=== PATIENT | female | born 1985 | race African-American/Black ===

== ENCOUNTER 2016-07-05 15:40 | Emergency (ER) | payer MEDICAID ==
[~2016-07-05] VITALS: Ht 170.2 cm; Wt 74.8 kg
[~2016-07-05 15:40] MED LIST: ACETAMINOPHEN-1 EAC1 PO; AUGMENTIN 875-1 EAC1 ORAL; AZITHROMYCIN250 MG ORAL; CYCLOBENZAPRINE10 MG ORAL; IBUPROFEN600 MG ORAL; METROGEL-VAGINA70 G1 VAGIN; NAPROSYN500 M1 ORAL; NKM; VIBRAMYCIN100 MG ORAL; ZOFRAN4 M3 ORAL
[2016-07-05] MEDS ORDERED: Morphine Sulfate 4mg/ml Inj IVP ONE (16:15)
[2016-07-05 16:38] LABS: APPEARANCE,URINE CLEAR; KETONES,URINE NEGATIVE (NEGATIVE); LEUKOCYTE ESTERASE ,URINE 1+ (NEGATIVE); NITRITE,URINE NEGATIVE (NEGATIVE); PH,URINE 5 (4.5-8.0); PROTEIN,URINE NEGATIVE (NEGATIVE); UROBILINOGEN,URINE NORMAL MG/DL (0.0-1.0)
[2016-07-05 16:41] LABS: BASOPHILS % (AUTO) 1.8 % (0.0-2.0); EOSINOPHILS % (AUTO) 1.3 % (0.0-3.0); LYMPHOCYTES % (AUTO) 44.7 % (20.0-45.0); MEAN CORPUSCULAR HEMOGLOBIN 27.4 PG (27.0-31.0); MEAN CORPUSCULAR VOLUME 83 FL (80-99); MEAN PLATELET VOLUME 7.6 FL (6.5-10.1); MONOCYTES % (AUTO) 8.2 % (1.0-10.0); NEUTROPHILS % (AUTO) 44.1 % (45.0-75.0); PLATELET COUNT 185 K/UL (150-450); RED BLOOD COUNT 4.77 M/UL (4.20-5.40); RED CELL DISTRIBUTION WIDTH 12.2 % (11.6-14.8); WHITE BLOOD COUNT 5.5 K/UL (4.8-10.8)
[2016-07-05 16:49] LABS: BACTERIA,URINE FEW /HPF; SQUAMOUS EPITHELIAL CELL,UR FEW /LPF (NONE/OCC); WBC,URINE 0-2 /HPF (0 - 2); YEAST,URINE FEW /HPF
[2016-07-05 16:51] LABS: ALANINE AMINOTRANSFERASE 14 U/L (3-33); ALBUMIN/GLOBULIN RATIO 1.2 (1.0-2.7); ANION GAP 15 (5-15); ASPARTATE AMINO TRANSFERASE 17 U/L (5-40); CALCIUM 9.2 mg/dL (8.6-10.2); CARBON DIOXIDE 26 mEQ/L (20-30); CHLORIDE 97 mEQ/L (98-107); CREATININE 0.9 mg/dL (0.5-0.9); GLOMERULAR FILTRATION RATE > 60 mL/min (>60); HEMOLYSIS 5; LIPASE 28 U/L (< 60); POTASSIUM 3.8 mEQ/L (3.4-4.9); SODIUM 138 mEQ/L (135-145); TOTAL PROTEIN 7.6 g/dL (6.6-8.7)
[2016-07-05] MEDS ORDERED: TRAMADOL HCL50 MG ORAL (18:41)
[2016-07-05 19:00] VITALS: BP 124/84
--- NOTE | 2016-07-05 19:30 | Emergency Room Report ---
History of Present Illness General Chief Complaint: Abdominal Pain Source: Patient Present Illness HPI 30-year-old female presents to ED complaining of abdominal pain x2 days. Notes pain to lower abdomen, throbbing, 8/10. Nonradiating. Patient also complaining of pain in her lower back. Patient denies any vaginal discharge. She states she noticed some spotting a few days ago. States she has an IUD in place. Denies any flank pain. Denies any fevers or chills. Denies nausea or vomiting. States that when she had similar pain like this in the past it was because of her IUD. No aggravating or relieving factors. Denies any other associated symptom Allergies: Coded Allergies: No Known Allergies (Unverified , 04/01/15) Patient History Past Medical History: none Past Surgical History: none Pertinent Family History: none Social History: Denies: alcohol use, drug use, smoking Last Menstrual Period: 1 month ago, cycle irregular, IUD Now: No Immunizations: UTD Reviewed Nursing Documentation: PMH: Agreed, PSxH: Agreed Nursing Documentation-PMH Past Medical History: No Stated History Review of Systems All Other Systems: negative except mentioned in HPI Physical Exam Vital Signs Date Time Temp Pulse Resp B/P Pulse Ox O2 Delivery O2 Flow Rate FiO2 07/05/16 15:52 98.8 82 16 110/73 100 Room Air Sp02 EP Interpretation: reviewed, normal General Appearance: no apparent distress, alert, GCS 15, non-toxic Head: normocephalic Eyes: bilateral eye PERRL, bilateral eye normal inspection ENT: normal ENT inspection Neck: normal inspection Respiratory: chest non-tender, lungs clear, normal breath sounds, speaking full sentences Cardiovascular #1: regular rate, rhythm, no edema Gastrointestinal: normal bowel sounds, soft, non-distended, no guarding, no rebound, tenderness - suprapubic Rectal: deferred Genitourinary: no CVA tenderness, no vertebral tenderness Musculoskeletal: normal inspection, other - paraspinal lumbar tenderness Neurologic: alert, oriented x3, responsive, motor strength/tone normal, sensory intact, speech normal Psychiatric: normal inspection Skin: normal color Lymphatic: normal inspection Medical Decision Making Diagnostic Impression: Primary Impression: Pelvic pain ER Course Hospital Course 30-year-old F presents to ED with lower abdominal pain Differential diagnosis includes- cystitis, UTI, constipation, ovarian cyst/ torsion Clinical course Patient placed on stretcher. After initial history and physical I ordered labs , IV fluids, Pelvic US Labs - no leukocytosis, electrolytes ok, LFTs normal, UA unremarkable Pelvic US - + free fluid in cul de sac. good flow to ovaries noted. IUD seen I believe patient clinical findings is consistent with IUD. Patient did have spotting and suprapubic pain in the midline. No necessarily any right lower quadrant pain. Did offer patient option for CT at this time. Patient declined stating that she return if pain gets worse, develops fever, vomiting, changes to right lower quadrant I feel this is a highly complex case requiring extensive working including EKG/ Rhythm strip, Xray/CT/US, Blood/urine lab work, repeat exams while in ED, and administration of strong opiates/narcotics for pain control, admission to hospital or close patient follow up. Diagnosis - pelvic pain Stable and discharged to home with Rx Tramadol. Followup with OBGYN. Return to ED if symptoms recur or worsen Labs Test 07/05/16 16:05 White Blood Count 5.5 K/UL (4.8-10.8) Red Blood Count 4.77 M/UL (4.20-5.40) Hemoglobin 13.1 G/DL (12.0-16.0) Hematocrit 39.6 % (37.0-47.0) Mean Corpuscular Volume 83 FL (80-99) Mean Corpuscular Hemoglobin 27.4 PG (27.0-31.0) Mean Corpuscular Hemoglobin Concent 33.0 G/DL (32.0-36.0) Red Cell Distribution Width 12.2 % (11.6-14.8) Platelet Count 185 K/UL (150-450) Mean Platelet Volume 7.6 FL (6.5-10.1) Neutrophils (%) (Auto) 44.1 % (45.0-75.0) Lymphocytes (%) (Auto) 44.7 % (20.0-45.0) Monocytes (%) (Auto) 8.2 % (1.0-10.0) Eosinophils (%) (Auto) 1.3 % (0.0-3.0) Basophils (%) (Auto) 1.8 % (0.0-2.0) Urine Color Pale yellow Urine Appearance Clear Urine pH 5 (4.5-8.0) Urine Specific [place] 1.015 (1.005-1.035) Urine Protein Negative (NEGATIVE) Urine Glucose (UA) Negative (NEGATIVE) Urine Ketones Negative (NEGATIVE) Urine Occult Blood 4+ (NEGATIVE) Urine Nitrite Negative (NEGATIVE) Urine Bilirubin Negative (NEGATIVE) Urine Urobilinogen Normal MG/DL (0.0-1.0) Urine Leukocyte Esterase 1+ (NEGATIVE) Urine RBC 2-4 /HPF (0 - 2) Urine WBC 0-2 /HPF (0 - 2) Urine Squamous Epithelial Cells Few /LPF (NONE/OCC) Urine Bacteria Few /HPF (NONE) Urine Yeast Few /HPF (NONE) Urine HCG, Qualitative Negative Sodium Level 138 mEQ/L (135-145) Potassium Level 3.8 mEQ/L (3.4-4.9) Chloride Level 97 mEQ/L (98-107) Carbon Dioxide Level 26 mEQ/L (20-30) Anion Gap 15 (5-15) Blood Urea Nitrogen 17 mg/dL (7-23) Creatinine 0.9 mg/dL (0.5-0.9) Estimat Glomerular Filtration Rate > 60 mL/min (>60) Glucose Level 61 mg/dL (74-106) Calcium Level 9.2 mg/dL (8.6-10.2) Total Bilirubin 0.2 mg/dL (0.0-1.2) Aspartate Amino Transf (AST/SGOT) 17 U/L (5-40) Alanine Aminotransferase (ALT/SGPT) 14 U/L (3-33) Alkaline Phosphatase 54 U/L (35-104) Total Protein 7.6 g/dL (6.6-8.7) Albumin 4.2 g/dL (3.5-5.2) Globulin 3.4 g/dL Albumin/Globulin Ratio 1.2 (1.0-2.7) Lipase 28 U/L (< 60) CT/MRI/US Diagnostic Results CT/MRI/US Diagnostic Results : Imaging Test Ordered: pelvic us Impression some free fluid in cul de sac. IUD seen. good flow to bilateral ovaries Last Vital Signs Date Time Temp Pulse Resp B/P Pulse Ox O2 Delivery O2 Flow Rate FiO2 07/05/16 19:00 69 18 124/84 99 Room Air 07/05/16 15:52 98.8 Status: improved Disposition: HOME, SELF-CARE Condition: Stable Scripts Tramadol Hcl* (ULTRAM*) 50 Mg Tablet 50 MG ORAL Q6H Y for For Pain, #30 TAB 0 Refills Prov: VIRGILIO ANDERSEN M.D. 07/05/16 Departure Forms: Return to Work Return to Work Date: July 07, 2016 Work Restrictions: No Heavy Lifting Patient Instructions: Pelvic Pain, Female, Intrauterine Device Insertion, Care After Additional Instructions: return to ED if pain moves to right lower abdomen, worsening of pain, fever, vomiting VIRGILIO ANDERSEN M.D. July 05, 2016 19:30
--- NOTE | 2016-07-06 14:35 | Diagnostic Imaging Report ---
Indication: Pelvic pain, non patient Technique: Transabdominal and transvaginal images Comparison: None Findings: There is an intrauterine device in place. Uterus measures 6.8 cm length by 5.2 cm. Endometrium measures 15 mm thick. No focal myometrial abnormality. Right ovary measures 3.3 cm length. Left ovary measures 3.2 cm length. No adnexal mass. There is trace free cul-de-sac fluid. Impression: No acute process Intrauterine device Trace free cul-de-sac fluid, likely physiologic
== END 2016-07-05 19:05 | disposition home or self-care (01) ==
LOC: EMR 17:22
DX: R10.2 Pelvic and perineal pain (principal); R10.9 Unspecified abdominal pain; M54.5 Low back pain; Z97.5 Presence of (intrauterine) contraceptive device; N92.1 Excessive and frequent menstruation with irregular cycle
CPT/HCPCS: 36415; 76856; 80053; 81003; 81025; 83690; 85025; 87086; 96360; 96374; 99284; J2270; J7040

== ENCOUNTER 2017-02-06 08:34 | Emergency (ER) | payer MEDICAID ==
[~2017-02-06] VITALS: Ht 170.2 cm; Wt 77.1 kg
[~2017-02-06 08:34] MED LIST changes: +TRAMADOL HCL50 MG ORAL
--- NOTE | 2017-02-06 09:07 | Emergency Room Report ---
History of Present Illness General Chief Complaint: Upper Respiratory Illness Source: Patient Present Illness HPI Patient presents with complaints of cough and congestion over the past 3 days Patient reports a now the phlegm production of green this has also exacerbated her low back pain Denies any vomiting or diarrhea patient has some nasal congestion as well Denies any neck pain or photophobia denies any dysuria frequency Patient has IUD device in place Allergies: Coded Allergies: No Known Allergies (Unverified , 04/01/15) Patient History Past Medical History: see triage record Pertinent Family History: none Last Menstrual Period: now Now: No Reviewed Nursing Documentation: PMH: Agreed, PSxH: Agreed Nursing Documentation-PMH Past Medical History: No History, Except For Review of Systems All Other Systems: negative except mentioned in HPI Physical Exam Vital Signs Date Time Temp Pulse Resp B/P (MAP) Pulse Ox O2 Delivery O2 Flow Rate FiO2 02/06/17 08:44 98.2 68 18 131/87 99 Room Air Sp02 EP Interpretation: reviewed, normal General Appearance: well appearing, no apparent distress Head: normocephalic, atraumatic Eyes: bilateral eye PERRL, bilateral eye EOMI ENT: hearing grossly normal, normal pharynx, TMs + canals normal, uvula midline Neck: full range of motion, supple, no meningismus, no bony tend Respiratory: lungs clear, normal breath sounds, no rhonchi, no respiratory distress, no retraction, no accessory muscle use Cardiovascular #1: normal peripheral pulses, regular rate, rhythm, no edema, no gallop, no JVD, no murmur Gastrointestinal: normal bowel sounds, non tender, soft, no mass, no organomegaly, non-distended, no guarding, no hernia, no pulsatile mass, no rebound Genitourinary: no CVA tenderness Musculoskeletal: normal inspection Neurologic: oriented x3, responsive, import export manager III-XII nml as tested, motor strength/ tone normal, sensory intact Psychiatric: mood/affect normal Skin: normal color, no rash, warm/dry, palpation normal Lymphatic: normal inspection, no adenopathy Medical Decision Making Diagnostic Impression: Primary Impression: Pneumonia ER Course Patient has findings in line with clinical pneumonia given the phlegm production As the patient's oxygenation is appropriate in no signs of rested distress initial imaging study has not been performed Patient stable for initial conservative outpatient trial Chest X-Ray Diagnostic Results Chest X-Ray Diagnostic Results : Chest X-Ray Ordered: Yes # of Views/Limited/Complete: 1 View Indication: Shortness of Breath EP Interpretation: Yes Interpretation: no consolidation, no effusion, no pneumothorax Impression: No acute disease Electronically Signed by: Pankaj Roy DO Last Vital Signs Date Time Temp Pulse Resp B/P (MAP) Pulse Ox O2 Delivery O2 Flow Rate FiO2 02/06/17 08:54 68 18 Room Air 02/06/17 08:44 98.2 131/87 99 Status: improved Disposition: HOME, SELF-CARE Condition: Improved Scripts Albuterol Sulfate* (ALBUTEROL SULFATE MDI*) 8.5 Gm Hfa.aer.ad 2 PUFF INH Q6H, #1 EA 0 Refills Prov: PANKAJ ROY D.O. 02/06/17 Codeine/Promethazine Hcl* (PROMETHAZINE-CODEINE SYRUP*) 118 Ml Syrup 10 ML ORAL Q6H Y for For Cough for 7 Days, ML 0 Refills Prov: PANKAJ ROY D.O. 02/06/17 Azithromycin* (ZITHROMAX*) 250 Mg Tablet 250 MG ORAL DAILY, #6 TAB 0 Refills Take two tablets by mouth today, then take one tablet by mouth daily for four days Prov: PANKAJ ROY D.O. 02/06/17 Additional Instructions: Patient is provided with the discharge instructions notified to follow up with primary doctor in the next 2-3 days otherwise return to the er with any worsening symptoms. Please note that this report is being documented using [employer] technology. This can lead to erroneous entry secondary to incorrect interpretation by the dictating instrument. PANKAJ ROY D.O. Feb 06, 2017 09:07
[2017-02-06] MEDS ORDERED: AZITHROMYCIN250 MG ORAL (09:09)
[2017-02-06] MEDS ORDERED: PROMETHAZINE-C118 M1 ORAL (09:09)
[2017-02-06] MEDS ORDERED: ALBUTEROL SULF8.5 GM INH (09:09)
[2017-02-06 09:16] LABS: APPEARANCE,URINE CLEAR; BILIRUBIN, URINE NEGATIVE (NEGATIVE); COLOR,URINE PALE YELLOW; GLUCOSE, URINE (UA) NEGATIVE (NEGATIVE); KETONES,URINE NEGATIVE (NEGATIVE); LEUKOCYTE ESTERASE ,URINE 1+ (NEGATIVE); NITRITE,URINE NEGATIVE (NEGATIVE); PH,URINE 6.5 (4.5-8.0); PROTEIN,URINE NEGATIVE (NEGATIVE); UROBILINOGEN,URINE NORMAL MG/DL (0.0-1.0)
[2017-02-06 09:30] VITALS: BP 127/85
== END 2017-02-06 09:30 | disposition home or self-care (01) ==
LOC: EMR 09:22
DX: J18.9 Pneumonia, unspecified organism (principal)
CPT/HCPCS: 81003; 81025; 99284

== ENCOUNTER 2017-09-28 19:01 | Emergency (ER) | payer MEDICAID ==
[~2017-09-28] VITALS: Ht 170.2 cm; Wt 86.2 kg
[~2017-09-28 19:01] MED LIST changes: +ALBUTEROL SULF8.5 GM INH; +PROMETHAZINE-C118 M1 ORAL
[2017-09-28] MEDS ORDERED: AUGMENTIN 875-1 EAC1 ORAL (19:20)
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
[2017-09-28 19:23] VITALS: BP 107/62
[2017-09-28 19:30] VITALS: BP 107/62
== END 2017-09-28 19:30 | disposition home or self-care (01) ==
LOC: EMR 19:28
DX: S71.151A Open bite, right thigh, initial encounter (principal); W50.3XXA Accidental bite by another person, initial encounter; Y92.149 Unspecified place in prison as the place of occurrence of the external cause
CPT/HCPCS: 99285

== ENCOUNTER 2017-10-26 16:03 | Emergency (ER) | payer MEDICAID, OTHER ==
[~2017-10-26] VITALS: Ht 170.2 cm; Wt 83.9 kg
[2017-10-26 16:18] VITALS: BP 106/74
[2017-10-26] MEDS ORDERED: ACETAMINOPHEN-1 EAC1 ORAL (16:26)
[2017-10-26] MEDS ORDERED: AMOXICILLIN500 MG ORAL (16:26)
--- NOTE | 2017-10-26 16:27 | Emergency Room Report ---
History of Present Illness General Chief Complaint: Toothache Source: Patient Present Illness HPI 32-year-old female patient presents ER complaining of dental pain for the past 2 days. Reports history of dental pain, states that she has a point with her dentist on Tuesday. Reports that she has been taking Flexeril and naproxen for pain, states ran out of Naproxen and has only been taking Flexeril for the past day. Denies fever, chest pain, shortness of breath. Denies vomiting or other acute symptoms. Allergies: Coded Allergies: No Known Allergies (Unverified , 04/01/15) Patient History Past Medical History: see triage record Last Menstrual Period: 09/24 Now: No : 2 Para: 2 Reviewed Nursing Documentation: PMH: Agreed; PSxH: Agreed Nursing Documentation-PMH Past Medical History: No History, Except For Review of Systems All Other Systems: negative except mentioned in HPI Physical Exam Vital Signs Date Time Temp Pulse Resp B/P (MAP) Pulse Ox O2 Delivery O2 Flow Rate FiO2 10/26/17 16:05 99.0 18 106/74 99 Room Air 99.0 Sp02 EP Interpretation: reviewed, normal General Appearance: well appearing, no apparent distress, alert, GCS 15, non- toxic Head: normocephalic, atraumatic Eyes: bilateral eye normal inspection, bilateral eye PERRL ENT: hearing grossly normal, normal pharynx, no angioedema, normal voice, TMs + canals normal, uvula midline, moist mucus membranes, other - no gum swelling or erythema, mild tenderness to palpation of right lower gum posterior tooth, multiple fillings noted, missing teeth noted, no abscess Neck: full range of motion Respiratory: lungs clear, normal breath sounds, no rhonchi, no respiratory distress, no accessory muscle use, no wheezing, speaking full sentences Cardiovascular #1: regular rate, rhythm, no edema Musculoskeletal: back normal, digits/nails normal, gait/station normal, normal range of motion, non-tender Neurologic: alert, oriented x3, responsive, motor strength/tone normal, sensory intact Psychiatric: mood/affect normal Skin: no rash Lymphatic: no adenopathy Medical Decision Making PA Attestation Dr. Rosales is my supervising Physician whom patient management has been discussed with. Diagnostic Impression: Primary Impression: Toothache ER Course Pt. presents to the ED c/o dental pain. Ddx considered but are not limited to cellulitis, abscess, dental caries, gingivitis. Does not require imaging at this time. Vital signs: are WNL, pt. is afebrile ED INTERVENTIONS: Pain medication provided in the ER. Nontoxic appearing, speaking full sentences, no active draining, mild edema, no trismus or vision changes. No signs of abscess, no fluctuance, erythema or edema. follow-up with dentist. Will provide abx for infection to cover for possible infection. F/u with PCP and dentist for further treatment. DISCHARGE: -Rx provided for Amoxicillin -Rx provided for Tylenol #3, SE drowsiness, do not take prior to drinking, driving, operating heavy machinery. CURES reviewed. At this time pt. is stable for d/c to home. Patient is resting comfortably, in no acute distress, nontoxic appearing, talking and smiling without difficulty. Will provide printed patient care instructions and any necessary prescriptions. Care plan and follow up instructions have been discussed with the patient prior to discharge. Patient instructed to follow-up with primary care provider in 2 - 3 days. Followup with dentist. Patient questions asked and answered. Patient reports understanding and agreement to treatment plan. ER precautions given. Patient instructed to return to ER immediately for any new or worsening of symptoms including but not limited to fever, worsening of pain symptoms, worsening of erythema, red streaking. - Please note that this Emergency Department Report was dictated using [employer] research assistant technology software, occasionally this can lead to erroneous entry secondary to interpretation by the dictation equipment. Last Vital Signs Date Time Temp Pulse Resp B/P (MAP) Pulse Ox O2 Delivery O2 Flow Rate FiO2 10/26/17 16:05 99.0 18 106/74 99 Room Air 99.0 Disposition: HOME, SELF-CARE Condition: Stable Scripts Amoxicillin* (AMOXIL*) 500 Mg Capsule 500 MG ORAL EVERY 8 HOURS for 7 Days, #21 CAP Prov: Ubaldo Nelson P.A. 10/26/17 Acetaminophen With Codeine (T#3) (TYLENOL #3 TAB*) Y Tab 1 TAB ORAL Q6HR PRN for For Pain, #8 TAB Prov: Ubaldo Nelson P.A. 10/26/17 Patient Instructions: Dental Pain Additional Instructions: Follow-up with dentist at scheduled appointment. Followup with primary care provider in 3 -5 days. Take medications as directed. SE drowsiness, do not take prior to drinking, driving, operating heavy machinery. Patient questions asked and answered. ER precautions given, patient instructed to return to ER immediately for any new or worsening of symptoms. Ubaldo Nelson Oct 26, 2017 16:27
[2017-10-26] MEDS ORDERED: Ketorolac 30mg Inj IM ONE (16:30)
== END 2017-10-26 16:49 | disposition home or self-care (01) ==
LOC: EMR 16:30
DX: K08.89 Other specified disorders of teeth and supporting structures (principal); Z79.899 Other long term (current) drug therapy
CPT/HCPCS: 96372; 99283; J1885

== ENCOUNTER 2018-09-09 12:36 | Emergency (ER) | payer SELFPAY ==
[~2018-09-09] VITALS: Ht 170.2 cm; Wt 90.7 kg
[~2018-09-09 12:36] MED LIST changes: +ACETAMINOPHEN-1 EAC1 ORAL; +AMOXICILLIN500 MG ORAL
[2018-09-09 12:50] VITALS: BP 146/84
--- NOTE | 2018-09-09 13:05 | NUR ---
ED Nurse Note: Pt. AAOx4. Ambulatory. Came in to Er due to n/v/d with abd pain noted on the lower quadrants. Pt. stated she had fries and burger last night and ever since since she has been vomiting clear colored emesis.
[2018-09-09] MEDS ORDERED: Metoclopramide 10mg/2ml Inj IVP ONE (13:15)
--- NOTE | 2018-09-09 13:26 | NUR ---
ED Nurse Note: pt medicated and toletated well. pt vss. will continue to monitor.
[2018-09-09 13:34] LABS: BASOPHILS % (AUTO) 1.6 % (0.0-2.0); HEMOGLOBIN 12.7 G/DL (12.0-16.0); LYMPHOCYTES % (AUTO) 28.6 % (20.0-45.0); MEAN CORPUSCULAR VOLUME 86 FL (80-99); NEUTROPHILS % (AUTO) 62.8 % (45.0-75.0); PLATELET COUNT 228 K/UL (150-450); RED BLOOD COUNT 4.66 M/UL (4.20-5.40); RED CELL DISTRIBUTION WIDTH 12.5 % (11.6-14.8); WHITE BLOOD COUNT 6.4 K/UL (4.8-10.8)
[2018-09-09 13:43] LABS: APPEARANCE,URINE CLEAR; BILIRUBIN, URINE NEGATIVE (NEGATIVE); COLOR,URINE PALE YELLOW; GLUCOSE, URINE (UA) NEGATIVE (NEGATIVE); KETONES,URINE NEGATIVE (NEGATIVE); LEUKOCYTE ESTERASE ,URINE NEGATIVE (NEGATIVE); NITRITE,URINE NEGATIVE (NEGATIVE); PH,URINE 7 (4.5-8.0); PROTEIN,URINE NEGATIVE (NEGATIVE); UROBILINOGEN,URINE NORMAL MG/DL (0.0-1.0)
[2018-09-09 13:44] LABS: ANION GAP 6 mmol/L (5-15); BLOOD UREA NITROGEN 10 mg/dL (7-18); CARBON DIOXIDE 31 MMOL/L (21-32); CHLORIDE 105 MMOL/L (98-107); CREATININE 0.9 MG/DL (0.55-1.30); POTASSIUM 4.2 MMOL/L (3.5-5.1); SODIUM 141 MMOL/L (136-145)
[2018-09-09 13:49] LABS: ALANINE AMINOTRANSFERASE 17 U/L (12-78); ALBUMIN 3.7 G/DL (3.4-5.0); ALBUMIN/GLOBULIN RATIO 0.9 (1.0-2.7); ALKALINE PHOSPHATASE 68 U/L (46-116); ASPARTATE AMINO TRANSFERASE 19 U/L (15-37); BILIRUBIN,TOTAL 0.2 MG/DL (0.2-1.0)
--- NOTE | 2018-09-09 14:01 | Emergency Room Report ---
History of Present Illness General Chief Complaint: Nausea, Vomiting, and Diarrhea Source: Patient Present Illness HPI 32-year-old female with no significant past medical history here complaining of 1 day of diffuse abdominal pain and few bouts of nonbloody emesis. Patient also reports that she has had 2 bouts of nonbloody diarrhea. She reports that her symptoms started after drinking and having a burger last night. Denies fever and chills, syncope, chest pain, palpitation, shortness of breath. Patient has not taken medication for her symptoms. Has been able to take oral hydration. Her last menstrual period is today. Patient denies all other symptoms. Denies being a smoker and drug use. Denies urinary symptoms Allergies: Coded Allergies: No Known Allergies (Unverified , 04/01/15) Patient History Past Medical History: see triage record Past Surgical History: unable to obtain Pertinent Family History: none Now: No Immunizations: UTD Reviewed Nursing Documentation: PMH: Agreed; PSxH: Agreed Review of Systems All Other Systems: negative except mentioned in HPI Physical Exam Vital Signs Date Time Temp Pulse Resp B/P (MAP) Pulse Ox O2 Delivery O2 Flow Rate FiO2 09/09/18 12:50 98.1 89 19 146/84 (104) 99 Room Air Sp02 EP Interpretation: reviewed, normal General Appearance: normal inspection, well appearing, no apparent distress, alert, GCS 15 Eyes: bilateral eye normal inspection, bilateral eye PERRL ENT: normal ENT inspection, hearing grossly normal, normal pharynx Neck: normal inspection, full range of motion, supple Respiratory: normal inspection, chest non-tender, lungs clear, no rhonchi, no retraction Cardiovascular #1: normal inspection, normal peripheral pulses, no edema, no murmur Gastrointestinal: normal inspection, non tender, soft, no mass, no organomegaly , no peritonitis, no bruit, non-distended, no guarding, no hernia, no pulsatile mass, no rebound, other - Negative McBurney's, Rovsing's, Randle sign Rectal: heme negative stool Genitourinary: no CVA tenderness Musculoskeletal: normal inspection, back normal, digits/nails normal, gait/ station normal Neurologic: normal inspection, alert, oriented x3, responsive, 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 Linder Diagnostic Impression: Primary Impression: Gastroenteritis ER Course 32-year-old female with no significant past medical history here complaining of 1 day of diffuse abdominal pain and few bouts of nonbloody emesis. Patient also reports that she has had 2 bouts of nonbloody diarrhea. She reports that her symptoms started after drinking and having a burger last night. Denies fever and chills, syncope, chest pain, palpitation, shortness of breath. Patient has not taken medication for her symptoms. Has been able to take oral hydration. Her last menstrual period is today. Patient denies all other symptoms. Denies being a smoker and drug use. Denies urinary symptoms Ddx considered but are not limited to: appendicitis, cholecystis, gastritis, gastroenteritis, UTI, pyelonephritis, SBO, diverticulitis, influenza with GI manifestation, Vital signs: are WNL, pt. is afebrile H&PE are most consistent with: Gastroenteritis ORDERS: CBC, CMP, UA, Zofran, omeprazole ED INTERVENTIONS: NS bolus, Reglan, Pepcid DISCHARGE: At this time pt. is stable for d/c to home. Will provide printed patient care instructions, and any necessary prescriptions. Care plan and follow up instructions have been discussed with the patient prior to discharge. Take medication as directed follow-up with your primary care provider if symptoms continue if worsening symptoms return to the emergency room Last Vital Signs Date Time Temp Pulse Resp B/P (MAP) Pulse Ox O2 Delivery O2 Flow Rate FiO2 09/09/18 12:50 98.1 89 19 146/84 99 Room Air Disposition: HOME, SELF-CARE Condition: Stable Scripts Omeprazole (OMEPRAZOLE) 20 Mg Tablet. 20 MG ORAL DAILY, #21 TAB Prov: Jose Carlos Payne 09/09/18 Ondansetron (Zofran) 4 Mg Tablet 4 MG ORAL Q6H PRN for Nausea & Vomiting, #12 TAB Prov: Jose Carlos Payne 09/09/18 Patient Instructions: Viral Gastroenteritis, Adult, [id number] Additional Instructions: Take medication as directed avoid eating spicy and acidic fluid. Increase oral hydration specially electrolyte water. Keep a BRAT diet Sahelimoghavami,Nahal PA Sep 09, 2018 14:01
[2018-09-09] MEDS ORDERED: ZOFRAN4 M1 ORAL (14:02)
[2018-09-09] MEDS ORDERED: OMEPRAZOLE20 M3 ORAL (14:02)
[2018-09-09 14:19] VITALS: BP 132/68
--- NOTE | 2018-09-09 14:19 | NUR ---
ER DISCHARGE NOTE: Patient is cleared to be discharged per ERMD, pt is aox4, on room air, with stable vital signs. pt was given dc and prescription instructions, pt was able to verbalize understanding, pt id band and iv site removed without complications. pt is able to ambulate with steady gait. pt took all belongings.
== END 2018-09-09 14:19 | disposition home or self-care (01) ==
LOC: EMR 14:02
DX: K52.9 Noninfective gastroenteritis and colitis, unspecified (principal)
CPT/HCPCS: 36415; 80053; 81001; 81025; 85025; 96361; 96374; 96375; 99284; J2765; S0028